=== PATIENT | female | born 1985 | race Hispanic/Latino ===

== ENCOUNTER 2017-07-01 19:03 | Emergency (ER) | payer MEDICAID ==
[2017-07-01 19:09] VITALS: BP 128/77; PULSE 120; RESP 18; TEMP 97.6; O2SAT 99
--- NOTE | 2017-07-01 20:36 | ED PDOC ---
HPI: General Adult Time Seen by Provider: 07/01/17 19:19 Chief Complaint (Nursing): Weakness/Neurological Deficit Chief Complaint (Provider): Facial Droop History Per: Patient History/Exam Limitations: no limitations Onset/Duration Of Symptoms: Days (x4) Current Symptoms Are (Timing): Still Present Additional Complaint(s): 32 y/o female with a pmhx of depression, anxiety, and ADHD, who presents to the ED for evaluation of right facial droop x4 days. Patient states her symptoms began Jacoby morning with a big headache and a feeling of heat to her body, especially the right side of her face. She says the right side of her face felt numb and she became unable to move it well. Also reports since her symptoms began, she's been experiencing pain in a tooth which bothered her in the past, but never sought treatment for, as well as right TMJ pain. Denies any current headache or fever. Reports recent increased allergy symptoms of sinus congestion and rhinorrhea. PMD: Dr. Reinoso Past Medical History Reviewed: Historical Data, Nursing Documentation, Vital Signs Vital Signs: Last Vital Signs Temp 97.6 F 07/01/17 19:06 Pulse 120 H 07/01/17 19:06 Resp 18 07/01/17 19:06 BP 128/77 07/01/17 19:06 Pulse Ox 99 07/04/17 09:24 - Medical History PMH: Anxiety, Depression Other PMH: ADHD - Surgical History Other surgeries: Ear surgery, inguinal hernia (as child), wisdom teeth extraction - Family History Family History: States: Other Other Family History: Thyroid disorder, cancer - Social History Current smoker - smoking cessation education provided: Yes Alcohol: None Drugs: Denies - Home Medications Home Medications: Ambulatory Orders Medication Instructions Recorded Clindamycin [Cleocin] 300 mg PO TID #21 cap 07/01/17 Dextran 70/Hypromellose 30 ml RIGHTEYE PRN PRN #30 ml 07/01/17 [Artificials Tears Drops] Erythromycin 0.5% [Ilytocin] 3.5 gm RIGHTEYE HS #1 tube 07/01/17 Fluconazole [Diflucan] 150 mg PO QWK #2 tab 07/01/17 predniSONE [Prednisone] 60 mg PO DAILY 10 Days tab 07/01/17 - Allergies Allergies/Adverse Reactions: Allergies Allergy/AdvReac Type Severity Reaction Status Date / Time codeine Allergy SHORTNESS Verified 07/01/17 19:06 OF BREATH Penicillins Allergy RASH Verified 07/01/17 19:06 Review of Systems ROS Statement: Except As Marked, All Systems Reviewed And Found Negative (and as per HPI) Constitutional: Negative for: Fever ENT: Positive for: Other (right tooth, right TMJ pain) Neurological: Positive for: Other (right facial droop). Negative for: Headache Physical Exam - Reviewed Nursing Documentation Reviewed: Yes Vital Signs Reviewed: Yes - Physical Exam Appears: Positive for: Non-toxic, No Acute Distress Head Exam: Positive for: ATRAUMATIC, NORMOCEPHALIC Skin: Positive for: Warm, Dry Eye Exam: Positive for: EOMI, PERRL ENT: Negative for: Pharyngeal Erythema, Tonsillar Exudate Neck: Positive for: Painless ROM, Supple Cardiovascular/Chest: Positive for: Regular Rate, Rhythm. Negative for: Murmur Respiratory: Positive for: Normal Breath Sounds. Negative for: Respiratory Distress Gastrointestinal/Abdominal: Positive for: Soft. Negative for: Tenderness Back: Positive for: Normal Inspection. Negative for: Decreased ROM Extremity: Positive for: Normal ROM. Negative for: Deformity Lymphatic: Negative for: Adenopathy Neurologic/Psych: Positive for: Alert, Oriented (x3), Motor/Sensory Deficits ( RIGHT facial droop), Mood/Affect (normal mood, mildly anxious affect), Gait ( steady), Facial Droop (right facial droop including the brow and forehead). Negative for: Aphasia - ECG O2 Sat by Pulse Oximetry: 99 (RA) Pulse Ox Interpretation: Normal Medical Decision Making Medical Decision Makin:23 Initial Impression: Right facial rae's palsy. Differential diagnoses include, but are not limited to rae's palsy, dental abscess, facial nerve inflammation, and brain mass. Plan: --CT Head w/o contrast --CT Maxillofacial w/o contrast --ED Urine --ED Urine dipstick --Reevaluation EXAM: CT Head Without Intravenous Contrast CLINICAL HISTORY: 32 years old, female; Signs and symptoms; Weakness, facial and other: Rt facial droop; Additional info: Right facial droop with headache tooth pain TECHNIQUE: Axial computed tomography images of the head/brain without intravenous contrast. All CT scans at this facility use one or more dose reduction techniques, viz.: automated exposure control; ma/kV adjustment per patient size (including targeted exams where dose is matched to indication; i.e. head); or iterative reconstruction technique. Coronal and sagittal reformatted images were created and reviewed. COMPARISON: No relevant prior studies available. FINDINGS: Brain: No intracranial hemorrhage. No mass. No definite edema. Ventricles: No hydrocephalus. Bones/joints: No calvarial fracture. Soft tissues: Unremarkable. Mastoid air cells: No mastoid effusion. IMPRESSION: 1. No definite acute intracranial abnormality. Acute infarction may be CT occult within first 24 hours. If a focal deficit persists, consider followup CT or MRI for further evaluation. 2. See facial bone CT report for additional details. Thank you for allowing us to participate in the care of your patient. Dictated and Authenticated by: Chet Shanks MD 07/01/2017 9:08 PM Eastern Time ([place] & [place]) EXAM: CT Maxillofacial Without Intravenous Contrast CLINICAL HISTORY: 32 years old, female; Signs and symptoms; Other: Rt facial numbness, rt dental pain, R/O abcess; Prior surgery; Surgery date: 6+ months; Surgery type: Bilat. Ears drained and tubes inserted as a child, wisdom teeth extracted about 10 yrs ago. Several root canals; Additional info: Right dental pain R/O abscess TECHNIQUE: Axial computed tomography images of the face without intravenous contrast. All CT scans at this facility use one or more dose reduction techniques, viz.: automated exposure control; ma/kV adjustment per patient size (including targeted exams where dose is matched to indication; i.e. head); or iterative reconstruction technique. Coronal and sagittal reformatted images were created and reviewed. COMPARISON: No relevant prior studies available. FINDINGS: Limitations: Lack of intravenous contrast. Bones/joints: No acute fracture. Soft tissues: No discrete periodontal fluid collection within limits of examination. Orbits: Unremarkable as visualized. Sinuses: Unremarkable. No air-fluid levels. Dental: Periapical lucencies about right upper second premolar, left upper first molar, left upper second molar. IMPRESSION: 1. Dental disease as above. Thank you for allowing us to participate in the care of your patient. Dictated and Authenticated by: Chet Shanks MD 07/01/2017 9:15 PM Eastern Time ([place] & [place]) DW pt findings. Will rx for toothache and bells palsy. Advised PMD and dental followup this week. Pt understands instructions and eager to go home. All questions/concerns answered/addressed. Stable for discharge with follow up. Scribe Attestation: Documented by Gentry Lock, acting as a scribe for Raquel Khan MD. Provider Scribe Attestation: All medical record entries made by the Scribe were at my direction and personally dictated by me. I have reviewed the chart and agree that the record accurately reflects my personal performance of the history, physical exam, medical decision making, and the department course for this patient. I have also personally directed, reviewed, and agree with the discharge instructions and disposition. Disposition - Clinical Impression Clinical Impression: Rae's palsy - Disposition Referrals: Mis Reinoso MD [Staff Provider] - (FOLLOW UP WITH DR REINOSO IN ABOUT A WEEK FOR REEVALUATION) Disposition: Routine/Home Disposition Time: 22:00 Condition: GOOD Additional Instructions: FOLLOW UP WITH DENTIST BY THE END OF THE WEEK. Prescriptions: Clindamycin [Cleocin] 300 mg PO TID #21 cap Dextran 70/Hypromellose [Artificials Tears Drops] 30 ml RIGHTEYE PRN PRN #30 ml PRN Reason: Dry Eyes Erythromycin 0.5% [Ilytocin] 3.5 gm RIGHTEYE HS #1 tube Fluconazole [Diflucan] 150 mg PO QWK #2 tab predniSONE [Prednisone] 60 mg PO DAILY 10 Days tab Instructions: Rae's Palsy, Dental Pain (DC) Forms: [employer] (Urdu)
--- NOTE | 2017-07-01 21:08 | CT ---
EXAM: CT Head Without Intravenous Contrast CLINICAL HISTORY: 32 years old, female; Signs and symptoms; Weakness, facial and other: Rt facial droop; Additional info: Right facial droop with headache tooth pain TECHNIQUE: Axial computed tomography images of the head/brain without intravenous contrast. All CT scans at this facility use one or more dose reduction techniques, viz.: automated exposure control; ma/kV adjustment per patient size (including targeted exams where dose is matched to indication; i.e. head); or iterative reconstruction technique. Coronal and sagittal reformatted images were created and reviewed. COMPARISON: No relevant prior studies available. FINDINGS: Brain: No intracranial hemorrhage. No mass. No definite edema. Ventricles: No hydrocephalus. Bones/joints: No calvarial fracture. Soft tissues: Unremarkable. Mastoid air cells: No mastoid effusion. IMPRESSION: 1. No definite acute intracranial abnormality. Acute infarction may be CT occult within first 24 hours. If a focal deficit persists, consider followup CT or MRI for further evaluation. 2. See facial bone CT report for additional details.
--- NOTE | 2017-07-01 21:15 | CT ---
EXAM: CT Maxillofacial Without Intravenous Contrast CLINICAL HISTORY: 32 years old, female; Signs and symptoms; Other: Rt facial numbness, rt dental pain, R/O abcess; Prior surgery; Surgery date: 6+ months; Surgery type: Bilat. Ears drained and tubes inserted as a child, wisdom teeth extracted about 10 yrs ago. Several root canals; Additional info: Right dental pain R/O abscess TECHNIQUE: Axial computed tomography images of the face without intravenous contrast. All CT scans at this facility use one or more dose reduction techniques, viz.: automated exposure control; ma/kV adjustment per patient size (including targeted exams where dose is matched to indication; i.e. head); or iterative reconstruction technique. Coronal and sagittal reformatted images were created and reviewed. COMPARISON: No relevant prior studies available. FINDINGS: Limitations: Lack of intravenous contrast. Bones/joints: No acute fracture. Soft tissues: No discrete periodontal fluid collection within limits of examination. Orbits: Unremarkable as visualized. Sinuses: Unremarkable. No air-fluid levels. Dental: Periapical lucencies about right upper second premolar, left upper first molar, left upper second molar. IMPRESSION: 1. Dental disease as above.
== END 2017-07-01 22:18 | disposition home or self-care (01) ==
LOC: H.ER 19:03
DX: G51.0 Bell's palsy (principal); F90.9 Attention-deficit hyperactivity disorder, unspecified type; Z88.0 Allergy status to penicillin; F41.9 Anxiety disorder, unspecified